=== PATIENT | female | born 1950 | race Caucasian/White ===

== ENCOUNTER 2018-08-07 06:12 | Inpatient (IN) | payer OTHER ==
[2018-07-24 09:17] LABS: ABSOLUTE EOSINOPHILS 0.3 thou/uL (0.0-0.7); ABSOLUTE LYMPHOCYTES 1.1 thou/uL (0.8-5.3); ABSOLUTE MONOCYTES 0.5 thou/uL (0.0-1.2); EOSINOPHILS 6.1 %; HEMATOCRIT 32.6 % (37.0-47.0); HEMOGLOBIN 10.2 gm/dL (12.0-15.0); LYMPHOCYTES 22.6 %; MCHC 31.4 g/dL (28.0-37.0); MCV 79.5 fL (80.0-100.0); MONOCYTES 9.2 %; MPV 8.9 fl. (7.2-11.1); NUCLEATED RBCS 0 /100WBC; PLATELET COUNT* 218 thou/uL (150-400); POLYS 61.1 %; RDW-CV 16.5 % (10.5-14.5); WBC 4.9 thou/uL (4.0-11.0)
[2018-07-24 09:23] LABS: APTT 36.4 Seconds (25.0-31.3); INR 1.1; PROTIME 11.1 Seconds (9.20-11.50)
[2018-07-24 09:29] LABS: ALBUMIN 3.4 g/dL (3.4-5.0); CALCIUM 8.7 mg/dL (8.5-10.1); CREATININE 0.8 mg/dL (0.6-1.3); POTASSIUM 4.1 mmol/L (3.5-5.1); TOTAL BILIRUBIN 0.4 mg/dL (<0.1-1.0); TOTAL PROTEIN 6.9 g/dL (6.4-8.2)
[2018-07-24 10:21] LABS: ESR (SEDRATE) 33 mm/hr (0-30)
--- NOTE | 2018-07-24 17:32 | EKG ---
[place] [address] ELECTROCARDIOGRAM REPORT Name: MARIZOL SOLORZANO Room: [facility].#: [id number] Admission: Attend Phys: Meliton Bryant, Discharge: Date of : 46 Report #: [id number] THIS REPORT FOR: //name// [facility] Test Date: 2018-07-24 Test Time: 09:20:47 Pat Name: MARIZOL MARTINEZJOANNE Department: Room: Gender: F Customer Support Coordinator: : 1950 Requested By: Meliton Bryant Order Number: [id number] Reading MD: Damion Abdullahi Measurements Intervals [place] Rate: 86 P: 72 AK: 158 QRS: 44 QRSD: 102 T: 52 QT: 369 QTc: 442 Interpretive Statements Sinus rhythm Ventricular premature complex Compared to ECG 04/30/2013 13:25:26 Ventricular premature complex(es) now present Sinus arrhythmia no longer present Myocardial infarct finding no longer present Electronically Signed On 07-24-2018 17:31:59 OSD CLERK by Damion Abdullahi [email or web address] <ELECTRONICALLY SIGNED> By: Damion Abdullahi MD, [facility] 07/24/18 1731 9 Damion Abdullahi MD, [facility] /EPI
[2018-07-24 21:10] LABS: GLYCOHEMOGLOBIN (HGB A1C) 5.6 % (4.8-5.6)
[~2018-08-07] VITALS: Ht 165.1 cm; Wt 90.7 kg
[~2018-08-07 06:12] MED LIST: AMBIEN 10 MG TA10 MG PO; BACTRIM DS TAB1 EACH PO; BUPRENORPHINE HC8 MG SUBLING; BUSPAR 5 MG TABL5 M1 PO; BUSPAR15 MG PO; BUSPIRONE HCL15 MG PO; CLEOCIN HCL150 MG PO; COUMADIN 1MG TAB1 M1 PO; COUMADIN 2.5MG2.5 M1 PO; COUMADIN 3 MG TA3 MG PO; COUMADIN 5 MG TA5 M1 PO; CYCLOBENZAPRINE10 MG PO; CYMBALTA60 MG PO; EMBEDA PO; ENOXAPARIN30 MG/0.1 INJECTION; EXALGO32 MG PO; FEMARA2.5 MG PO; FENTORA SUBLING; FEXOFENADINE H180 MG PO; GLYCOLAX POWDER17 G1 PO; HYDROCODON-ACE1 EAC7 PO; HYDROXYCHLOROQ200 M1 PO; LEVOTHYROXIN0.112 M1 PO; LYRICA100 MG PO; LYRICA150 MG PO; LYRICA300 MG PO; MOBIC15 MG PO; MS CONTIN15 MG PO; NEURONTIN 300300 M1 PO; NORCO 5-325 TA1 EACH PO; OMEPRAZOLE40 MG PO; OXYCODONE HCL 55 MG PO; OXYIR5 MG PO; PERCOCET 5-3251 EACH PO; PREVACID 30MG C30 M1 PO; TIZANIDINE HCL4 MG PO; TRAMADOL 50 MG50 MG PO; ZANTAC 150MG T150 M1 PO
[2018-08-07 07:33] VITALS: BP 125/59
[2018-08-07 13:37] VITALS: BP 127/75
[2018-08-07 16:07] VITALS: BP 130/77
[2018-08-07 20:00] VITALS: BP 150/81
[2018-08-08] VITALS: BP 127/68
[2018-08-08 03:42] LABS: HEMATOCRIT 25.8 % (37.0-47.0); HEMOGLOBIN 8.2 gm/dL (12.0-15.0)
[2018-08-08 03:57] VITALS: BP 100/73
[2018-08-08 08:00] VITALS: BP 102/70
[2018-08-08 16:22] VITALS: BP 102/70
[2018-08-08 16:31] VITALS: BP 122/68
[2018-08-08 20:20] VITALS: BP 130/70
[2018-08-09 00:07] VITALS: BP 122/50
[2018-08-09 04:20] LABS: HEMATOCRIT 23.1 % (37.0-47.0); HEMOGLOBIN 7.5 gm/dL (12.0-15.0); MCH 25.3 pg (26.0-34.0); MCHC 32.3 g/dL (28.0-37.0); MCV 78.5 fL (80.0-100.0); MPV 8.9 fl. (7.2-11.1); RBC 2.95 mil/uL (4.20-5.00); RDW-CV 17.1 % (10.5-14.5); WBC 7.7 thou/uL (4.0-11.0)
[2018-08-09 04:26] LABS: CALCIUM 8.2 mg/dL (8.5-10.1); CREATININE 0.8 mg/dL (0.6-1.3); MAGNESIUM 1.7 mg/dL (1.8-2.4); POTASSIUM 3.9 mmol/L (3.5-5.1)
[2018-08-09 04:30] VITALS: BP 144/51
[2018-08-09 07:17] LABS: URINE BILIRUBIN NEGATIVE (Negative); URINE BLOOD 2+ (Negative); URINE CLARITY CLEAR; URINE COLOR YELLOW; URINE GLUCOSE-RANDOM NEGATIVE (Negative); URINE KETONES 1+ (Negative); URINE LEUKOCYTES-REFLEX 3+ (Negative); URINE NITRITE-REFLEX NEGATIVE (Negative); URINE PROTEIN NEGATIVE (Negative); URINE SPECIFIC GRAVITY 1.025 (1.005-1.030); URINE UROBILINOGEN 0.2 E.U./dl (0.2-1.0)
[2018-08-09 07:24] LABS: CASTS None Seen /LPF (None Seen); CRYSTALS None Seen /LPF (None Seen); MUCUS 4-6 Moderate strn/LPF (None Seen); SQUAMOUS 0-3 Few /LPF (0-3); URINE RBC 3-10 Few /HPF (0-2)
[2018-08-09 07:40] VITALS: BP 143/50
[2018-08-09 16:00] VITALS: BP 129/63
[2018-08-10 02:00] VITALS: BP 121/44
[2018-08-10 07:50] VITALS: BP 90/45
[2018-08-10 10:22] LABS: HEMATOCRIT 22.2 % (37.0-47.0); HEMOGLOBIN 7.1 gm/dL (12.0-15.0); MCH 25.2 pg (26.0-34.0); MCHC 31.7 g/dL (28.0-37.0); MCV 79.6 fL (80.0-100.0); MPV 8.8 fl. (7.2-11.1); RBC 2.8 mil/uL (4.20-5.00); WBC 6.4 thou/uL (4.0-11.0)
[2018-08-10 10:24] LABS: CALCIUM 8.3 mg/dL (8.5-10.1); CREATININE 0.7 mg/dL (0.6-1.3); POTASSIUM 3.3 mmol/L (3.5-5.1)
[2018-08-10 16:47] VITALS: BP 114/60
[2018-08-10 22:01] VITALS: BP 105/52
[2018-08-11 09:44] LABS: HEMATOCRIT 21.1 % (37.0-47.0); MCHC 31.6 g/dL (28.0-37.0); MCV 79.1 fL (80.0-100.0); MPV 8.5 fl. (7.2-11.1); RBC 2.67 mil/uL (4.20-5.00); RDW-CV 17.5 % (10.5-14.5); WBC 4.8 thou/uL (4.0-11.0)
[2018-08-11 09:48] LABS: HEMOGLOBIN 6.7 gm/dL (12.0-15.0)
[2018-08-11 09:56] LABS: CALCIUM 8.4 mg/dL (8.5-10.1); CREATININE 0.7 mg/dL (0.6-1.3); POTASSIUM 3.6 mmol/L (3.5-5.1)
[2018-08-11 11:54] VITALS: BP 110/61; BP 110/66; BP 110/68; BP 112/69
--- NOTE | 2018-08-11 18:11 | PATH ---
[address] [address] PATHOLOGY RPT PROCEDURE Name: NINFA SOLORZANO Room: [address] IN M.R.#: [id number] Admission: 08/07/18 Date of : 46 Discharge: Report #: [id number] Path Case #: [id number] [facility] Accession Number: [id number] . 01 Material submitted: . RIGHT KNEE SYNOVIUM . 01 Clinical history: . Failed right total knee arthroplasty . 02 Diagnosis: Right knee synovium: - Fibrinoid debris with calcification and benign synovium and dense fibrous connective tissue with evidence of prior surgery including foreign body type granulomatous response entrapping birefringent foreign material, with less than 2 neutrophils / high power field, on average. . (DOROTHEA:kamila; 08/11/18) [facility]/08/11/2018 . 02 Electronically signed: . Ben Minaya MD, Pathologist NPI- [id number] . 01 Gross description: . The specimen is received in formalin, labeled "Ninfa Solorzano, right knee synovium", are two irregular fragments of diez huang-white rubbery soft tissues measuring 3.0 x 2.8 x 1.0 cm in aggregate. Straight Edger tissue is submitted in A1. ([facility]; 08/07/2018) [facility] . 02 Pathologist provided ICD-10: T84.092A . 02 CPT . 275094 Specimen Comment: A courtesy copy of this report has been sent to Specimen Comment: [phone]. Specimen Comment: Report sent to Performed at: [address], [place] [id number] MD Rudolph Main MD Phone: [phone] Performed at: 02 [facility] [address], [place], [place] [id number] MD Ben Minaya MD Phone: [phone]
[2018-08-12 01:11] LABS: URINE BILIRUBIN NEGATIVE (Negative); URINE BLOOD NEGATIVE (Negative); URINE CLARITY CLEAR; URINE COLOR YELLOW; URINE GLUCOSE-RANDOM NEGATIVE (Negative); URINE KETONES NEGATIVE (Negative); URINE LEUKOCYTES TRACE (Negative); URINE NITRITE NEGATIVE (Negative); URINE PROTEIN NEGATIVE (Negative); URINE UROBILINOGEN 0.2 E.U./dl (0.2-1.0)
[2018-08-12 02:16] LABS: CASTS None Seen /LPF (None Seen); SQUAMOUS 0-3 Few /LPF (0-3)
[2018-08-12 02:17] LABS: BACTERIA 1-9 Few /HPF (None Seen); CRYSTALS None Seen /LPF (None Seen); URINE RBC 0-2 Rare /HPF (0-2); URINE WBC 0-5 Rare /HPF (0-5)
[2018-08-12 03:47] LABS: HEMATOCRIT 22.5 % (37.0-47.0); HEMOGLOBIN 7.5 gm/dL (12.0-15.0); MCH 26.2 pg (26.0-34.0); MCHC 33.2 g/dL (28.0-37.0); MPV 8.5 fl. (7.2-11.1); RBC 2.85 mil/uL (4.20-5.00); RDW-CV 16.6 % (10.5-14.5); WBC 4.6 thou/uL (4.0-11.0)
[2018-08-12 04:00] VITALS: BP 94/48
[2018-08-12 04:17] LABS: CALCIUM 8.3 mg/dL (8.5-10.1); CREATININE 0.6 mg/dL (0.6-1.3); MAGNESIUM 2.2 mg/dL (1.8-2.4); POTASSIUM 3.5 mmol/L (3.5-5.1)
[2018-08-12 07:50] VITALS: BP 101/52
[2018-08-12 12:33] VITALS: BP 102/70
[2018-08-12] MEDS ORDERED: XARELTO20 MG PO (13:24)
[2018-08-12] MEDS ORDERED: CEFDINIR300 MG PO (13:27)
[2018-08-12] MEDS ORDERED: IRON325 PO (13:28)
[2018-08-12] MEDS ORDERED: COLACE100 MG PO (13:29)
[2018-08-12] MEDS ORDERED: MIRALAX17 GM PO (13:29)
[2018-08-12 13:36] VITALS: BP 102/70
[2018-08-12] MEDS ORDERED: ROXICODONE5 M2 PO (13:36)
--- NOTE | 2018-08-15 13:21 | OP ---
[address] [address] OPERATIVE REPORT Name: MARIZOL SOLORZANO Room: [address] IN .R.#: [id number] Admission: 08/07/18 Attend Phys: Stephanie Pearson MD Discharge: 08/12/18 Date of : 46 Report #: [id number] THIS REPORT FOR: //name// CC: Meliotn Pearson [facility] Physician staff DICTATED BY: Jean-Pierre Mccall DO DATE OF SERVICE: 08/07/2018 PREOPERATIVE DIAGNOSIS: Right total knee arthroplasty, aseptic loosening all components. POSTOPERATIVE DIAGNOSIS: Right total knee arthroplasty, aseptic loosening all components. PROCEDURE: Revision right total knee arthroplasty of femoral and tibial components utilizing the Link total knee revision system with the following components. 1. A 60 mm small tibial tray. 2. A 15 mm small tibial full augment. 3. A 160 mm x 16 mm press fit cementless tibial stem. 4. A 130 mm x 18 mm cementless press fit femoral stem. 5. Small R2 right femoral component. 6. A 25 mm x 18 mm distal femoral augments x 2. 7. Small Link rotating hinge mechanism with accompanying polyethylene insert. SURGEON: Meliton Bryant DO PROJECT MGR: Jean-Pierre Mccall DO and Jose Elias Carver DO ANESTHESIA: General with a right lower extremity nerve block performed by anesthesia. ESTIMATED BLOOD LOSS: 250 mL. TOURNIQUET TIME: 112 minutes at 300 mmHg to right lower extremity. SPECIMENS: Multiple synovial specimen sent for permanent pathology. DRAINS: Medium Hemovac, right knee. COMPLICATIONS: [place] [address] OPERATIVE REPORT Name: MARIZOL SOLORZANO MARLIN Room: [address] M.R.#: [id number] Admission: 08/07/18 Attend Phys: Stephanie Pearson MD Discharge: 08/12/18 Date of : 46 Report #: [id number] DISPOSITION: Stable to PACU and will be admitted to the hospital for standard postoperative care. ANTIBIOTICS: 2 grams Ancef IV preoperatively. INDICATION FOR PROCEDURE: The patient is a pleasant 67-year-old female who was seen in Orthopedic Clinic with long-term complaints of feelings of right knee pain and instability. She does not have any significant signs concerning for infection such as erythema, drainage from the wound or significant effusion or fevers or chills. Her workup in clinic was rather negative other than lucency around the components on the radiographs concerning for aseptic loosening. She had previous revision total knee arthroplasty in 2006 where she had a long tibial stem and augments on her tibial tray component, had primary femur component at that time. Had lucency around all these components with suspected aseptic loosening. The instability and pain was greatly impacting her quality of life and making it difficult for her to walk. Recommendation was made for revision right total knee arthroplasty of both the femoral and tibial components with long revision stems. The risks, benefits, complications, indications and alternative treatments were discussed and the patient wished to proceed with surgery today. DESCRIPTION OF PROCEDURE: The patient was seen in preoperative holding area. Correct operative site, right knee was initialed. The patient was taken back to the operating suite, placed in supine position on the operating table, given benefit of general anesthetic. A well-padded tourniquet was placed to the right upper thigh. Right lower extremity was then prepped and draped in typical fashion. Surgery began with a timeout, identifying correct patient, correct procedure, correct operative site, preoperative antibiotics and correct performing surgeon. Next, the previous anterior knee midline scar was utilized for same incision. It was extended both proximally and distally. Skin was incised with a 10 blade scalpel down to level of prepatellar fascia. There was significant scar tissue noted. A medial parapatellar arthrotomy was performed in a normal fashion. All hypertrophic and fibrotic synovium was debrided utilizing electrocautery, both on the lateral and medial gutters and around the patella, around the patellar tendon and quadriceps tendon. Overall, her tissues appeared rather unremarkable for revision knee. There were no signs or concerns for infection. Both femur and tibial components including the tibial stem were easily removed utilizing these tools. Next, there was minimal cement left on the bony surface of the tibia. There was cement mantle on the femur. This was essentially free hand cut just deep to the cement mantle with rather well preserved distal femoral bone after cutting off the cement mantle. Next, we started reaming down the tibial intramedullary canal. We did sequential reaming by hand up until we had a tight canal fit. This was left in place. We then placed our proximal tibia cutting guide. This was positioned off of our previous medial tibial cut as [address] [place] [address] OPERATIVE REPORT Name: MARIZOL SOLORZANO Room: [address] M.R.#: [id number] Admission: 08/07/18 Attend Phys: Stephanie Pearson MD Discharge: 08/12/18 Date of : 46 Report #: [id number] this was the lowest portion. We then freshened up our tibial cut and removed the lateral aspect of our proximal tibia cut. We were down into the metaphyseal bone and had essentially very minimal width of our proximal tibia. We made sure to take our tibial stem roughly at cortical diameters, passed the old tibial stem as that previous stem seemed to be close to cutting out of the lateral cortex. Next, attention was also turned to reaming intramedullary in the femur through the canal until good cortical chatter and good fit with our sequential reaming was noted in the isthmus and the intramedullary canal. Next, we placed our trial components. There was a small femur on the previously mentioned stem and a small tibial plate with 15 mm augments both on the distal femur and proximal tibia with the aforementioned stem above in both the tibia and femur. The trial components were placed and then we placed our trial hinge mechanism. We did closely inspect our patella. It was significantly worn on the lateral facet, making the remaining bone very thin. We elected just to leave the current patellar button alone as it was not loose, but was also worn but had very minimal bone to perform any sort of revision patella on. Trial components were placed, seemed to have appropriate patellar tracking throughout motion, had full range of motion, again felt stable to varus and valgus stress due to the hinge component. Had good soft tissue tensioning. We felt this was rather appropriate for trial components. Next, the final components were pulled and assembled on the back table by the industrial technologist. Cement was mixed and bony surfaces of the distal femur and proximal tibia were thoroughly irrigated using pulsatile lavage. Next, we started by impacting our final tibial press fit stem and tibial plate with 15 mm augments all previously assembled on the back table until we got with roughly 5 mm remaining to the proximal tibia surface. Then we were able to place cement on the proximal tibial surface and underneath the tibial tray and then impacted the stem and tibial component the remainder of the way. All excess cement was removed. In a similar fashion, we started impacting the press fit femoral stem and distal femoral component, which was previously assembled on back table into the intramedullary canal of the femur up until about 5 mm remained between the distal femoral cut surface and the component. Again, we placed cement in this region and continued impacting until the component was flushed against distal femoral surface. All excess cement was removed. We then placed our locking hinge mechanism in the typical fashion and placed our polyethylene spacer, which was locked into place. Knee again was taken through range of motion. After cement had hardened, had full extension, full flexion, had good patellar tracking. Again, felt stable varus valgus stress of course due to the rotating hinge mechanism. Had good soft tissue tensioning and appropriate joint line height compared to the patella. Next, a thorough pulsatile lavage was performed up to the joint. The tourniquet was deflated after inserting TXA. We waited 5 minutes and then suctioned out the TXA. A medium Hemovac was placed intraarticularly. The capsule was closed in a [id number] fashion utilizing #1 Vicryl sutures. Subcutaneous tissues were closed in a simple inverted fashion with 2-0 Monocryl suture. A 2-0 Vicryl suture and a running 3-0 subcuticular Stratafix suture was performed. Dermabond was applied to the skin. Standard dressings were applied [place] [address] OPERATIVE REPORT Name: MARIZOL SOLORZANO Room: [address] IN [facility].#: [id number] Admission: 08/07/18 Attend Phys: Stephanie Pearson MD Discharge: 08/12/18 Date of : 46 Report #: [id number] The patient was weaned from general anesthesia, transferred in stable condition to the PACU. All sponge and needle counts were correct x 2. <ELECTRONICALLY SIGNED> By: Desmond Lewis DO 08/15/18 1321 1529 0017Meliton Bryant DO /nt
== END 2018-08-12 14:55 | disposition home health service (06) | DRG 467 ==
LOC: M.SUR 06:12 → M.TBA 12:36 → M.ORTHSURG 12:36 → M.3W 08-09 16:03
PROVIDERS: Internal Medicine; Orthopaedic Surgery; ADMIT Internal Medicine
PROC: 0SPC0JZ Removal of Synthetic Substitute from Right Knee Joint, Open Approach (ICD-10-PCS; principal; 2018-08-07)
PROC: 0SRC0J9 Replacement of Right Knee Joint with Synthetic Substitute, Cemented, Open Approach (ICD-10-PCS; principal; 2018-08-07)
PROC: 30233N1 Transfusion of Nonautologous Red Blood Cells into Peripheral Vein, Percutaneous Approach (ICD-10-PCS; 2018-08-11)
DX: T84.032A Mechanical loosening of internal right knee prosthetic joint, initial encounter (principal); N39.0 Urinary tract infection, site not specified; D68.59 Other primary thrombophilia; M17.11 Unilateral primary osteoarthritis, right knee; K21.9 Gastro-esophageal reflux disease without esophagitis; J45.909 Unspecified asthma, uncomplicated; E03.9 Hypothyroidism, unspecified; R33.9 Retention of urine, unspecified; E83.42 Hypomagnesemia; D50.9 Iron deficiency anemia, unspecified; Z88.1 Allergy status to other antibiotic agents; Z88.0 Allergy status to penicillin; Z88.8 Allergy status to other drugs, medicaments and biological substances; Z98.84 Bariatric surgery status; Z90.49 Acquired absence of other specified parts of digestive tract; Z90.13 Acquired absence of bilateral breasts and nipples; Z98.42 Cataract extraction status, left eye; Z98.41 Cataract extraction status, right eye; Z86.718 Personal history of other venous thrombosis and embolism; Z90.710 Acquired absence of both cervix and uterus; Z86.711 Personal history of pulmonary embolism; Z79.899 Other long term (current) drug therapy